=== PATIENT | male | born 1980 | race Caucasian/White ===

== ENCOUNTER 2021-11-27 16:02 | Emergency (ER) | payer OTHER, SELFPAY ==
[2021-11-27 16:07] VITALS: BP 148/88; PULSE 83; RESP 18; TEMP 36.4; O2SAT 96
--- NOTE | 2021-11-27 16:12 | DI.RAD.S_ITS ---
PROCEDURE: XR FINGER RT MIN 2V INDICATIONS: crush injury TECHNIQUE: AP hand, 2 views of the 4th finger(s) acquired. COMPARISON: None. FINDINGS: Bones: There is a comminuted fractured seen involving the distal aspect of the distal phalanx of the 4th finger. No definite intra-articular involvement can be seen. Soft tissues: No suspicious soft tissue calcifications. IMPRESSION: Can be new fracture of the distal aspect of the distal phalanx of the 4th finger, without intra-articular involvement seen. Dictated by: Cristhian Munoz M.D. on 11/27/2021 at 15:27 Approved by: Cristhian Munoz M.D. on 11/27/2021 at 15:28
--- NOTE | 2021-11-27 16:41 | ED.UPPEXIN ---
HPI - Extremity Injury (Upper) General Chief Complaint: Extremity Injury, Upper Stated Complaint: Injured little finger right hand Time Seen by Provider: 11/27/21 16:31 Source: patient Mode of arrival: Ambulatory History of Present Illness HPI narrative: Patient brought here by co-worker. Patient was caring a hose and tripped over a hose, fell back and the metal multi slide machine tender, struck his right ring finger against the ground. Complains distal right ring finger pain. Tetanus up-to-date. Has subungual hematoma to the fingernail. Fingernail otherwise intact. Denies any other injuries. Related Data Previous Rx's Medication Instructions Recorded hydrocodone 5 mg-acetaminophen 325 1 tab PO Q6H PRN #12 tab 11/27/21 mg tablet ibuprofen 600 mg tablet 600 mg PO Q6H PRN #24 tab 11/27/21 ondansetron 4 mg disintegrating 4 mg PO Q8H PRN #10 tab 11/27/21 tablet Allergies Allergy/AdvReac Type Severity Reaction Status Date / Time No Known Drug Allergies Allergy Verified 11/27/21 16:13 Review of Systems Review of Systems Narrative: GENERAL: Denies chills, fatigue, malaise, fever, sweats. HEENT: Denies sinus pain, ear pain, sore throat RESPIRATORY: Denies dyspnea, cough CARDIOVASCULAR: Denies chest pain, palpitations GASTROINTESTINAL: Denies nausea, vomiting, abdominal pain : Denies dysuria, frequency, hematuria MUSCULOSKELETAL: Positive for muscle or bony pain SKIN: Denies rash, skin lesions NEUROLOGIC: Denies weakness, numbness ROS Unobtainable: All systems reviewed & are unremarkable except as noted in HPI and below Exam Narrative Exam Narrative: GENERAL: in no distress, not toxic not dyspneic HEAD: Normocephalic. EXTREMITIES: Examination of the right hand. Small abrasion to the the IP joint dorsal surface of the 5th finger. That finger is nontender no gross deformities. Examination of the ring finger. There is subungual hematoma. Tenderness to the distal phalanx. Skin otherwise intact. Light touch intact to fingers. Hand otherwise warm soft and pink. NEURO: AOx4. SKIN: Warm and dry PSYCH: Not anxious, is cooperative Initial Vital Signs Initial Vital Signs: Vital Signs Temperature 97.5 F L 11/27/21 16:07 Pulse Rate 83 11/27/21 16:07 Respiratory Rate 18 11/27/21 16:07 Blood Pressure 148/88 H 11/27/21 16:07 Pulse Oximetry 96 11/27/21 16:07 Procedures Orthopedic Splinting/Casting Injury #1: Time of procedure: 16:47 Side: right Upper Extremity Injury Location: finger (Ring finger) Upper Extremity Immobilizer: aluminum form splint Post splinting neuro exam: intact Post splinting vascular exam: intact Placed by: Nursing [facility] [place] Procedure Name of Procedure: Finger nail trephination Location: Right ring finger fingernail Technique/Description of procedure performed: Electric cautery to finger nail. At the mid finger nail. Good venous drainage. Complications: none Additional Comments: Hemostasis attained after trephination. Course Course Course Narrative: No new issues during course of stay Orders Ordered: Discontinued Medications Hydrocodone Bitart/Acetaminophen (Hydrocodone/Acet 5/325 Tablet) 2 tab PO NOW ONE Stop: 11/27/21 16:41 Last Admin: 11/27/21 16:48 Dose: 2 tab Documented by: AGUSTIN Bacitracin (Bacitracin Oint 0.9 Gm Pckt) 1 applic TOP NOW ONE Stop: 11/27/21 17:24 Last Admin: 11/27/21 17:34 Dose: 1 applic Documented by: MARTIN Ondansetron HCl (Ondansetron 4 Mg Odt) 4 mg SL NOW ONE Stop: 11/27/21 16:41 Last Admin: 11/27/21 16:48 Dose: 4 mg Documented by: AGUSTIN Vital Signs Vital signs: Vital Signs - 8 hr 11/27/21 16:07 Temperature 97.5 F L Pulse Rate 83 Respiratory Rate 18 Blood Pressure 148/88 H Pulse Oximetry 96 MDM - Extremity Injury (Upper) Differential Diagnosis Differential diagnosis: Likely finger sprain, dislocation of finger and other (Subungual hematoma/finger fracture) Imaging Data Extremity x-ray #1: Radiologist's Impression: [address] [address] XRay Report Signed Patient: Mikel Merritt MR#: [id number] : 1980 Acct:[id number] Age/Sex: 41 / M Date of Service: 11/27/21 Loc: ED Accession Number: [id number] ?? Procedure: XR finger RT min 2V Ordering Provider: Bienvenido Cartagena MD PROCEDURE:? XR FINGER RT MIN 2V ? INDICATIONS:? crush injury ? TECHNIQUE:? AP hand, 2 views of the 4th finger(s) acquired.? ? COMPARISON:? None. ? FINDINGS:? ? Bones:? There is a comminuted fractured seen involving the distal aspect of the distal phalanx of the 4th finger.? No definite intra-articular involvement can be seen. ? Soft tissues:? No suspicious soft tissue calcifications.? IMPRESSION:? Can be new fracture of the distal aspect of the distal phalanx of the 4th finger, without intra-articular involvement seen.? ? ? Dictated by: Cristhian Munoz M.D. on 11/27/2021 at 15:27 ? ? Approved by: Cristhian Munoz M.D. on 11/27/2021 at 15:28 ? MDM Narrative Medical decision making narrative: Appropriate for discharge home. Exam and imaging otherwise reassuring. Trephination of the finger nail tolerated very well. Small venous ooze from the puncture site. Used electrocautery. L and I form completed. Pain controlled. Pain medication provided. Orthopedic follow-up referral given. Return precautions reviewed patient. 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 Do not use prescribed pain medication while at work. You may take Tylenol or ibuprofen when at work. Call provided orthopedic office tomorrow for office appointment follow-up. No using right hand when at work. Work note provided. Prescriptions: New hydrocodone-acetaminophen 5-325 mg tablet 1 tab PO Q6H PRN (Reason: pain) Qty: 12 0RF ibuprofen 600 mg tablet 600 mg PO Q6H PRN (Reason: fever or pain) Qty: 24 0RF ondansetron 4 mg tablet,disintegrating 4 mg PO Q8H PRN (Reason: nausea and vomiting) Qty: 10 0RF Referrals: Brittani Youssef MD [Physician] - Stand Alone Forms: Work Release Note
[2021-11-27] MEDS: ONDANSETRON 4 MG ODT SL (16:48)
[2021-11-27] MEDS: HYDROCODONE/ACET 5/325 TABLET 2 TAB PO (16:48)
[2021-11-27] MEDS: BACITRACIN OINT 0.9 GM PCKT 1 APPLIC TOP (17:34)
[2021-11-27 17:36] VITALS: BP 157/94; PULSE 83; RESP 16; O2SAT 99
== END 2021-11-27 17:36 | disposition home or self-care (01) ==
PROVIDERS: Emergency Provider Emergency Medicine
DX: S62.624A Displaced fracture of middle phalanx of right ring finger, initial encounter for closed fracture (principal); S60.141A Contusion of right ring finger with damage to nail, initial encounter; W18.09XA Striking against other object with subsequent fall, initial encounter; Y93.89 Activity, other specified; Y99.0 Civilian activity done for income or pay
CPT/HCPCS: 11740; 29130; 73140; 99283